=== PATIENT | female | born 1990 | race Caucasian/White ===

== ENCOUNTER 2018-02-04 14:32 | Observation (INO) | payer MEDICAID ==
[~2018-02-04] VITALS: Ht 167.6 cm; Wt 95.5 kg
[2018-02-04] MEDS ORDERED: LACTATED RINGERS 1,000 ML IV SCH (14:34)
[2018-02-04] MEDS ORDERED: PLEASE ENTER HEIGHT AND WEIGHT MC SCH (15:00)
[2018-02-04] MEDS ORDERED: CEFAZOLIN PMX 1GM/50ML IVPB ONE (15:00)
[2018-02-04 15:24] LABS: BASOPHILS # (AUTO) 0.06 x10^3/uL (0-0.1); BASOPHILS % (AUTO) 1 % (0-1); EOSINOPHILS # (AUTO) 0.08 x10^3/uL (0-0.4); EOSINOPHILS % (AUTO) 1 % (1-7); LYMPHOCYTES # (AUTO) 2.83 x10^3/uL (1-3.4); LYMPHOCYTES % (AUTO) 23 % (22-44); MEAN CORPUSCULAR HEMOGLOBIN 27.8 pg (27.0-34.8); MEAN CORPUSCULAR HGB CONC 33.6 g/dL (32.4-35.8); MEAN CORPUSCULAR VOLUME 82.8 fL (80-100); MEAN PLATELET VOLUME 8.7 fL (7.4-10.4); MONOCYTES # (AUTO) 0.52 x10^3/uL (0.2-0.8); MONOCYTES % (AUTO) 4 % (2-9); NEUTROPHILS # (AUTO) 8.85 x10^3/uL (1.8-6.8); NEUTROPHILS % (AUTO) 72 % (42-75); PLATELET COUNT 207 x10^3/uL (130-400); RED BLOOD COUNT 5.26 x10^6/uL (3.82-5.3); RED CELL DISTRIBUTION WIDTH 13.2 % (9.6-15.2)
[2018-02-04 15:25] LABS: MD NO
[2018-02-04] MEDS ORDERED: CEFAZOLIN PMX 1GM/50ML 50 ML IVPB SCH (15:30)
[2018-02-04] MEDS ORDERED: LIDOCAINE-MPF 1%, 5ML ONE (17:43)
[2018-02-04] MEDS ORDERED: CEFAZOLIN 1,000 MG ONE (18:10)
[2018-02-04] MEDS ORDERED: SODIUM CHLORIDE 0.9% PF 10ML ONE (18:10)
== END 2018-02-04 21:38 | disposition home or self-care (01) ==
LOC: LDOP 14:32 → LDIP 14:34
PROVIDERS: ADMIT Obstetrics & Gynecology Maternal & Fetal Medicine; ATTEND Obstetrics & Gynecology Maternal & Fetal Medicine
DX: O26.872 Cervical shortening, second trimester (principal); O34.32 Maternal care for cervical incompetence, second trimester; O99.212 Obesity complicating pregnancy, second trimester; O99.282 Endocrine, nutritional and metabolic diseases complicating pregnancy, second trimester; E03.9 Hypothyroidism, unspecified; Z3A.21 21 weeks gestation of pregnancy
CPT/HCPCS: 36415; 59320; 85025; G0378; J0690; J7120; 96360; 96361